=== PATIENT | male | born 1975 | race Caucasian/White ===

== ENCOUNTER 2017-06-07 09:15 | Emergency (ER) | payer MEDICAID, OTHER ==
[~2017-06-07] VITALS: Ht 177.8 cm; Wt 108.9 kg
[2017-06-07 09:20] VITALS: BP_SYST 139
--- NOTE | 2017-06-07 09:30 | NUR ---
ER at bedside examining patient.
--- NOTE | 2017-06-07 09:30 | NUR ---
Pt brought in by BLS,pt c/o woke up whole body shaking,chocking,gasping for the air.pt is awake,alert,oriented x4,apper very anxious,hyperventilation.constantly talking. skin hot,flashes.tachycardia on the monitor.no acute distress.
--- NOTE | 2017-06-07 09:30 | NUR ---
Placed in room 7 . Placed on bus driver/monitor, blood pressure machine and pulse oximeter. To gown for exam. Side rails up.
[2017-06-07] MEDS ORDERED: cefTRIAXone 1 GM IVPB PREMIX 50 ML IV ONE (09:45)
[2017-06-07] MEDS ORDERED: ACETAMINOPHEN 500 MG TABLET PO ONE (09:45)
--- NOTE | 2017-06-07 10:09 | NUR ---
TAKEN TO RADIOLOGY VIA SUSAN
--- NOTE | 2017-06-07 10:13 | NUR ---
RETURNED FROM RADIOLOGY, PLACED BACK INTO BED #7
[2017-06-07 10:20] LABS: BASOPHILS # (AUTO) 0.1 K/uL (0.0-0.2); BASOPHILS % (AUTO) 0.3 % (0.0-2.0); EOSINOPHILS # (AUTO) 0.1 K/uL (0.0-0.4); EOSINOPHILS % (AUTO) 0.6 % (0.0-4.0); HEMOGLOBIN 15.8 g/dL (14.0-18.0); LYMPHOCYTES # (AUTO) 1.4 K/uL (1.0-5.5); LYMPHOCYTES % (AUTO) 7.5 % (20.5-51.5); MEAN CORPUSCULAR HEMOGLOBIN 28 pg (27-31); MEAN CORPUSCULAR HGB CONC 32 % (32-36); MEAN CORPUSCULAR VOLUME 87 fL (79.0-98.0); MONOCYTES # (AUTO) 0.4 K/uL (0.0-1.0); NEUTROPHILS # (AUTO) 16.5 K/uL (1.8-7.7); NEUTROPHILS % (AUTO) 89.6 % (40.0-70.0); PLATELET COUNT (AUTO) 267 K/uL (130-430); RED BLOOD CELL COUNT(AUTO) 5.64 MIL/uL (4.2-6.2); RED CELL DISTRIBUTION WIDTH 12.8 % (9.0-15.0); WHITE BLOOD COUNT (AUTO) 18.5 K/uL (4.8-10.8)
[2017-06-07 10:25] LABS: ANION GAP 5 (5-15); CALCIUM 8.4 mg/dL (8.4-11.0); CHLORIDE 104 mmol/L (98-107); CREATININE 1.26 mg/dL (0.55-1.30); GLUCOSE 97 mg/dL (70-99); POTASSIUM 3.4 mmol/L (3.5-5.1); SODIUM SERUM 142 mmol/L (136-145); UREA NITROGEN, BLOOD 19 mg/dL (8-21)
[2017-06-07 10:30] LABS: PROTHROMBIN TIME 10.5 SECS (9.5-12.5)
[2017-06-07] MEDS ORDERED: NACL 0.9% 1,000 ML IV ONE (10:30)
[2017-06-07 10:31] LABS: GFR AFRICAN AMERICAN 82 mL/min (>90)
[2017-06-07 10:41] LABS: ALANINE AMINOTRANSFERASE 37 U/L (12-78); ALBUMIN 4.2 g/dL (3.4-4.8); ASPARTATE AMINOTRANSFERASE 30 U/L (10-37); FREE T4 (FREE THYROXINE) 0.7 ng/dL (0.6-1.6); TOTAL BILIRUBIN 0.6 mg/dL (0.0-1.0); TOTAL PROTEIN, SERUM 7.7 g/dL (6.4-8.3)
[2017-06-07 10:45] LABS: ALCOHOL, BLOOD < 3 mg/dL (<10)
[2017-06-07 11:25] LABS: BILIRUBIN,URINE NEGATIVE (NEGATIVE); BLOOD, URINE NEGATIVE (NEGATIVE); CLARITY/URINE CLEAR (CLEAR); COLOR,URINE YELLOW (YELLOW); GLUCOSE,URINE NEGATIVE (NEGATIVE); KETONES,URINE NEGATIVE (NEGATIVE); LEUKOCYTE ESTERASE ,URINE NEGATIVE (NEGATIVE); NITRITE, URINE NEGATIVE (NEGATIVE); PROTEIN URINE NEGATIVE (NEGATIVE)
[2017-06-07 11:38] LABS: BENZODIAZEPINE, URINE POSITIVE (NEG <=150); CANNABINOID, URINE POSITIVE (NEG <=50); UR TRICYCLIC ANTIDEPRESSANTS POSITIVE (NEG <=300)
[2017-06-07 11:39] LABS: BARBITURATE, URINE NEGATIVE (NEG <=200); URINE AMPHETAMINE NEGATIVE (NEG <=500)
[2017-06-07 11:40] LABS: COCAINE, URINE NEGATIVE (NEG <=150); METHAMPHETAMINES SCREEN,URINE POSITIVE (NEG <=500); OPIATE, URINE NEGATIVE (NEG <=100); PHENCYCLIDINE SCREEN,URINE NEGATIVE (NEG <=25); URINE METHADONE NEGATIVE (NEG <=200); URINE OXYCODONE SCREEN NEGATIVE (NEG <=100); URINE PROPOXYPHENE SCREEN NEGATIVE (NEG <=300)
--- NOTE | 2017-06-07 12:14 | NUR ---
Patient does not wish to proceed with medical care recommended by Christopher. Patient given information related to possible complications, up to and including , which could occur as a result of leaving hospital at this time. Patient verbalizes understanding of risks involved leaving against medical advice. Patient has signed AMA form.
[2017-06-07 12:15] VITALS: BP_SYST 130
== END 2017-06-07 12:14 | disposition left against medical advice (07) ==
LOC: SED 09:15
DX: R07.89 Other chest pain (principal); F41.9 Anxiety disorder, unspecified; E03.9 Hypothyroidism, unspecified; K21.9 Gastro-esophageal reflux disease without esophagitis; Z90.49 Acquired absence of other specified parts of digestive tract
CPT/HCPCS: 36415; 71010; 74000; 80053; 80307; 81003; 83605; 83880; 84439; 84484; 85025; 85610; 87040; 93005; 96365; 99285; G0482; J0696; J7030

== ENCOUNTER 2019-04-17 12:31 | Emergency (ER) | payer MEDICAID, OTHER ==
[~2019-04-17] VITALS: Ht 177.8 cm; Wt 90.7 kg
[2019-04-17 12:31] VITALS: BP_SYST 93
[2019-04-17] MEDS ORDERED: NACL 0.9% 1,000 ML IV ONE (12:45)
[2019-04-17] MEDS ORDERED: LORazepam 2 MG/ML VIAL (FOR ER USE) IVP ONE ×2 (13:00→15:45)
[2019-04-17 13:06] LABS: BASOPHILS # (AUTO) 0.1 K/uL (0.0-0.2); BASOPHILS % (AUTO) 0.4 % (0.0-2.0); HEMATOCRIT 46.5 % (36-54); LYMPHOCYTES # (AUTO) 0.8 K/uL (1.0-5.5); LYMPHOCYTES % (AUTO) 4.3 % (20.5-51.5); MEAN CORPUSCULAR HEMOGLOBIN 30 pg (27-31); MEAN CORPUSCULAR HGB CONC 34 % (32-36); MEAN CORPUSCULAR VOLUME 87 fL (79.0-98.0); MONOCYTES # (AUTO) 0.7 K/uL (0.0-1.0); MONOCYTES % (AUTO) 3.9 % (1.7-9.3); NEUTROPHILS # (AUTO) 17.5 K/uL (1.8-7.7); NEUTROPHILS % (AUTO) 91.4 % (40.0-70.0); PLATELET COUNT (AUTO) 405 K/uL (130-430); RED BLOOD CELL COUNT(AUTO) 5.37 MIL/uL (4.2-6.2); RED CELL DISTRIBUTION WIDTH 13.4 % (9.0-15.0); WHITE BLOOD COUNT (AUTO) 19.2 K/uL (4.8-10.8)
[2019-04-17 13:19] LABS: BARBITURATE, URINE NEGATIVE (NEG <=200)
[2019-04-17 13:20] LABS: BENZODIAZEPINE, URINE POSITIVE (NEG <=150); CANNABINOID, URINE POSITIVE (NEG <=50); COCAINE, URINE NEGATIVE (NEG <=150); METHAMPHETAMINES SCREEN,URINE POSITIVE (NEG <=500); OPIATE, URINE POSITIVE (NEG <=100); PHENCYCLIDINE SCREEN,URINE NEGATIVE (NEG <=25); UR TRICYCLIC ANTIDEPRESSANTS POSITIVE (NEG <=300); URINE AMPHETAMINE NEGATIVE (NEG <=500); URINE METHADONE NEGATIVE (NEG <=200); URINE OXYCODONE SCREEN NEGATIVE (NEG <=100); URINE PROPOXYPHENE SCREEN NEGATIVE (NEG <=300)
[2019-04-17 13:24] LABS: ALANINE AMINOTRANSFERASE 25 U/L (12-78); ALBUMIN 4.6 g/dL (3.4-4.8); ASPARTATE AMINOTRANSFERASE 19 U/L (10-37); CALCIUM 10.6 mg/dL (8.4-11.0); CHLORIDE 101 mmol/L (98-107); CREATININE 2.15 mg/dL (0.55-1.30); GLUCOSE 199 mg/dL (70-99); POTASSIUM 3.9 mmol/L (3.5-5.1); SODIUM SERUM 140 mmol/L (136-145); TOTAL BILIRUBIN 0.9 mg/dL (0.0-1.0); UREA NITROGEN, BLOOD 23 mg/dL (8-21)
[2019-04-17 13:34] LABS: ANION GAP 19 (5-15)
[2019-04-17 13:36] LABS: GFR AFRICAN AMERICAN 44 mL/min (>90)
[2019-04-17 14:13] LABS: ACETAMINOPHEN < 1 ug/mL (1-30); ALCOHOL, BLOOD < 3 mg/dL (<10)
[2019-04-17] MEDS ORDERED: ONDANSETRON HCL 4 MG/2 ML VIAL IVP ONE (14:45)
[2019-04-17] MEDS ORDERED: ONDANSETRON HCL 4 MG/2 ML VIAL ONE (14:46)
[2019-04-17] MEDS ORDERED: MAG-AL HYDROX/SIMETH 30 ML UDC PO ONE (15:45)
[2019-04-17 16:10] VITALS: BP_SYST 114
== END 2019-04-17 16:10 | disposition home or self-care (01) ==
LOC: SED 12:31
DX: F19.10 Other psychoactive substance abuse, uncomplicated (principal); M79.7 Fibromyalgia; F41.9 Anxiety disorder, unspecified; E03.9 Hypothyroidism, unspecified; K21.9 Gastro-esophageal reflux disease without esophagitis; R11.2 Nausea with vomiting, unspecified; Z90.49 Acquired absence of other specified parts of digestive tract
CPT/HCPCS: 36415; 80053; 80307; 84484; 85025; 93005; 96361; 96374; 96375; 96376; 99284; G0480; G0481; G0482; J2060; J2405; J7030

== ENCOUNTER 2019-08-26 15:43 | Emergency (ER) | payer MEDICAID, OTHER ==
[~2019-08-26] VITALS: Ht 175.3 cm; Wt 83.9 kg
[2019-08-26 15:50] VITALS: BP_SYST 125
[2019-08-26] MEDS ORDERED: HALOPERIDOL LACTATE 5 MG/ML VIAL IVP ONE ×2 (16:15→16:30)
[2019-08-26] MEDS ORDERED: NACL 0.9% 1,000 ML IV ONE (16:15)
[2019-08-26 16:20] LABS: BASOPHILS % (AUTO) 0.3 % (0.0-2.0); HEMATOCRIT 41.5 % (36-54); LYMPHOCYTES # (AUTO) 0.9 K/uL (1.0-5.5); LYMPHOCYTES % (AUTO) 6.1 % (20.5-51.5); MEAN CORPUSCULAR HEMOGLOBIN 29 pg (27-31); MEAN CORPUSCULAR HGB CONC 34 % (32-36); MEAN CORPUSCULAR VOLUME 86 fL (79.0-98.0); MONOCYTES # (AUTO) 0.6 K/uL (0.0-1.0); MONOCYTES % (AUTO) 3.8 % (1.7-9.3); NEUTROPHILS # (AUTO) 13.2 K/uL (1.8-7.7); NEUTROPHILS % (AUTO) 89.8 % (40.0-70.0); PLATELET COUNT (AUTO) 349 K/uL (130-430); RED CELL DISTRIBUTION WIDTH 13.9 % (9.0-15.0); WHITE BLOOD COUNT (AUTO) 14.6 K/uL (4.8-10.8)
[2019-08-26 16:34] LABS: CALCIUM 10.1 mg/dL (8.4-11.0); CREATININE 1.78 mg/dL (0.55-1.30); POTASSIUM 3.3 mmol/L (3.5-5.1)
[2019-08-26 16:40] LABS: ALBUMIN 4.6 g/dL (3.4-4.8); TOTAL BILIRUBIN 0.9 mg/dL (0.0-1.0)
[2019-08-26] MEDS ORDERED: DIPHENHYDRAMINE INJ 50 MG/ML VIAL IVP ONE (17:00)
[2019-08-26 18:26] VITALS: BP_SYST 117
== END 2019-08-26 18:26 | disposition home or self-care (01) ==
LOC: SED 15:43
DX: F12.188 Cannabis abuse with other cannabis-induced disorder (principal); F41.9 Anxiety disorder, unspecified; M79.7 Fibromyalgia; E03.9 Hypothyroidism, unspecified; K21.9 Gastro-esophageal reflux disease without esophagitis
CPT/HCPCS: 36415; 80053; 85025; 93005; 96361; 96374; 96375; 99283; J1200; J1630; J7030

== ENCOUNTER 2021-01-01 11:34 | Emergency (ER) | payer MEDICAID, OTHER, SELFPAY ==
[~2021-01-01] VITALS: Ht 177.8 cm; Wt 95.3 kg
[2021-01-01 11:42] VITALS: BP_SYST 138
[2021-01-01] MEDS ORDERED: NACL 0.9% 1,000 ML IV ONE ×2 (12:00→13:15)
[2021-01-01] MEDS ORDERED: MORPHINE 2 MG/ML INJ. SYRINGE IVP ONE (12:00)
[2021-01-01 12:04] LABS: BASOPHILS # (AUTO) 0.1 K/uL (0.0-0.2); BASOPHILS % (AUTO) 0.7 % (0.0-2.0); EOSINOPHILS % (AUTO) 0.1 % (0.0-4.0); HEMATOCRIT 48.6 % (36-54); HEMOGLOBIN 16.5 g/dL (14.0-18.0); LYMPHOCYTES # (AUTO) 1.5 K/uL (1.0-5.5); LYMPHOCYTES % (AUTO) 10.1 % (20.5-51.5); MEAN CORPUSCULAR HEMOGLOBIN 29 pg (27-31); MEAN CORPUSCULAR HGB CONC 34 % (32-36); MEAN CORPUSCULAR VOLUME 84 fL (79.0-98.0); MONOCYTES # (AUTO) 1.4 K/uL (0.0-1.0); MONOCYTES % (AUTO) 9.4 % (1.7-9.3); NEUTROPHILS # (AUTO) 11.9 K/uL (1.8-7.7); NEUTROPHILS % (AUTO) 79.7 % (40.0-70.0); PLATELET COUNT (AUTO) 354 K/uL (130-430); RED BLOOD CELL COUNT(AUTO) 5.79 MIL/uL (4.2-6.2); RED CELL DISTRIBUTION WIDTH 15.1 % (9.0-15.0); WHITE BLOOD COUNT (AUTO) 14.9 K/uL (4.8-10.8)
[2021-01-01 12:16] LABS: CALCIUM 9.7 mg/dL (8.4-11.0); CREATININE 1.42 mg/dL (0.55-1.30)
[2021-01-01 12:23] LABS: ALBUMIN 4.7 g/dL (3.4-4.8); TOTAL BILIRUBIN 2.4 mg/dL (0.0-1.0)
[2021-01-01 13:10] LABS: BILIRUBIN,URINE NEGATIVE (NEGATIVE); BLOOD, URINE NEGATIVE (NEGATIVE); CLARITY/URINE CLEAR (CLEAR); COLOR,URINE YELLOW (YELLOW); GLUCOSE,URINE NEGATIVE (NEGATIVE); KETONES,URINE NEGATIVE (NEGATIVE); LEUKOCYTE ESTERASE ,URINE NEGATIVE (NEGATIVE); NITRITE, URINE NEGATIVE (NEGATIVE); PH,URINE 5.5 (5.0-8.0); PROTEIN URINE NEGATIVE (NEGATIVE); UROBILINOGEN,URINE 0.2 (0.2-1.0)
[2021-01-01] MEDS ORDERED: POTASSIUM CHLORIDE 20 MEQ/PKT PACKET PO ONE (13:15)
[2021-01-01] MEDS ORDERED: POTASSIUM CHLORIDE 20 MEQ/PKT PACKET ONE (13:16)
[2021-01-01 13:49] VITALS: BP_SYST 130
== END 2021-01-01 13:51 | disposition home or self-care (01) ==
LOC: SED 11:34
DX: K57.92 Diverticulitis of intestine, part unspecified, without perforation or abscess without bleeding (principal); E87.6 Hypokalemia; E86.0 Dehydration; R10.84 Generalized abdominal pain; K21.9 Gastro-esophageal reflux disease without esophagitis; F41.9 Anxiety disorder, unspecified; E03.9 Hypothyroidism, unspecified
CPT/HCPCS: 36415; 74176; 76376; 80053; 81003; 83690; 85025; 96361; 96374; 99284; J2270; J7030

== ENCOUNTER → 2021-05-30 09:20 | Emergency (ER) | payer MEDICAID, OTHER ==
[~2021-05-30] VITALS: Ht 180.3 cm; Wt 117.9 kg
[~2021-05-30 09:20] MED LIST: CIPR500T5 PO; IBUP-1971 PO; KETOROLAC TROMETHAMINE 30 MG VIAL IVP ONE; MAG HYDROX/AL HYDROX/SIMETH 30 ML, DICYCLOMINE HCL 20 MG, LIDOCAINE VISCOUS 2% 15ML (PO... PO ONE; NACL 0.9% 1,000 ML IV ONE; ONDA4TAB5 PO; ONDANSETRON HCL 4 MG/2 ML VIAL IVP ONE
--- NOTE | 2021-05-30 09:20 | NUR ---
Placed in room 1 . Placed on residential monitor, blood pressure machine and pulse oximeter. To gown for exam. Side rails up. Report given to ERIKA Nuñez.
[2021-05-30 09:33] VITALS: BP_SYST 142
--- NOTE | 2021-05-30 09:45 | NUR ---
Pt came to ER for nausea, vomiting, and abdominal pain since Monday. Pt states he has vomitted 20 times today. Pt is resting in [facility] at this time, appears comfortable, MD to evaluate
[2021-05-30 09:46] LABS: BASOPHILS # (AUTO) 0.2 K/uL (0.0-0.2); HEMATOCRIT 51.6 % (36-54); HEMOGLOBIN 16.6 g/dL (14.0-18.0); LYMPHOCYTES # (AUTO) 1.3 K/uL (1.0-5.5); LYMPHOCYTES % (AUTO) 9.1 % (20.5-51.5); MEAN CORPUSCULAR HEMOGLOBIN 27 pg (27-31); MEAN CORPUSCULAR HGB CONC 32 % (32-36); MEAN CORPUSCULAR VOLUME 85 fL (79.0-98.0); MONOCYTES # (AUTO) 1.6 K/uL (0.0-1.0); NEUTROPHILS # (AUTO) 11.5 K/uL (1.8-7.7); NEUTROPHILS % (AUTO) 78.9 % (40.0-70.0); PLATELET COUNT (AUTO) 407 K/uL (130-430); RED BLOOD CELL COUNT(AUTO) 6.05 MIL/uL (4.2-6.2); RED CELL DISTRIBUTION WIDTH 15.3 % (9.0-15.0); WHITE BLOOD COUNT (AUTO) 14.6 K/uL (4.8-10.8)
--- NOTE | 2021-05-30 09:50 | NUR ---
ER at bedside examining patient.
[2021-05-30 09:56] LABS: CALCIUM 10.2 mg/dL (8.4-11.0); CREATININE 1.87 mg/dL (0.55-1.30); POTASSIUM 3.1 mmol/L (3.5-5.1)
[2021-05-30 10:02] LABS: TOTAL BILIRUBIN 1.4 mg/dL (0.0-1.0)
--- NOTE | 2021-05-30 11:16 | NUR ---
Patient given written and verbal discharge instructions and verbalizes understanding. ER MD discussed with patient the results and treatment provided. Patient in stable condition. ID arm band removed. IV catheter removed intact and dressing applied, no active bleeding. Rx of Cipro,Motrin, Zofran given. Patient educated on pain management and to follow up with PMD. Pain Scale 2/10. Opportunity for questions provided and answered. Medication side effect fact sheet provided.
[2021-05-30 11:17] VITALS: BP_SYST 142
== END | disposition home or self-care (01) ==
LOC: SED 09:20
DX: R10.13 Epigastric pain (principal); R19.7 Diarrhea, unspecified; R11.2 Nausea with vomiting, unspecified; F12.90 Cannabis use, unspecified, uncomplicated
CPT/HCPCS: 36415; 71045; 80053; 83690; 85025; 96361; 96374; 96375; 96376; 99284; J1885; J2001; J2405; J7030

== ENCOUNTER 2021-05-30 18:10 | Emergency (ER) | payer MEDICAID, OTHER ==
[~2021-05-30] VITALS: Ht 180.3 cm; Wt 81.6 kg
[~2021-05-30 18:10] MED LIST changes: -KETOROLAC TROMETHAMINE 30 MG VIAL IVP ONE; -MAG HYDROX/AL HYDROX/SIMETH 30 ML, DICYCLOMINE HCL 20 MG, LIDOCAINE VISCOUS 2% 15ML (PO... PO ONE; -NACL 0.9% 1,000 ML IV ONE; -ONDANSETRON HCL 4 MG/2 ML VIAL IVP ONE
--- NOTE | 2021-05-30 18:15 | NUR ---
Placed in room 8 . Placed on [employer] assistant principal, blood pressure machine and pulse oximeter. To gown for exam. Side rails up. Report given to ERIKA Nuñez.
[2021-05-30 18:23] VITALS: BP_SYST 144
--- NOTE | 2021-05-30 18:23 | NUR ---
Pt came to ER with abdominal pain n/v rates pain 07/30, was seen earlier today for same issue and discharged. Pt states he had neighbor oyster picker medication for him but did not attempt to take them because he did not think he would be able to keep them down. Pt wretching, attempting to force vomit unsuccessfully. Awaiting MD darby.
--- NOTE | 2021-05-30 18:25 | NUR ---
FIDEL Arizmendi at bedside examining patient.
[2021-05-30] MEDS ORDERED: NACL 0.9% 1,000 ML IV ONE ×2 (18:45→19:45)
[2021-05-30] MEDS ORDERED: ONDANSETRON HCL 4 MG/2 ML VIAL IVP ONE ×2 (18:45→19:30)
[2021-05-30] MEDS ORDERED: MAG HYDROX/AL HYDROX/SIMETH 30 ML, DICYCLOMINE HCL 20 MG, LIDOCAINE VISCOUS 2% 15ML (PO... PO ONE ×3 (18:45)
[2021-05-30 19:13] LABS: BASOPHILS # (AUTO) 0.1 K/uL (0.0-0.2); BASOPHILS % (AUTO) 0.3 % (0.0-2.0); HEMATOCRIT 49.6 % (36-54); HEMOGLOBIN 15.7 g/dL (14.0-18.0); LYMPHOCYTES # (AUTO) 2.6 K/uL (1.0-5.5); LYMPHOCYTES % (AUTO) 14.3 % (20.5-51.5); MEAN CORPUSCULAR HEMOGLOBIN 27 pg (27-31); MEAN CORPUSCULAR HGB CONC 32 % (32-36); MEAN CORPUSCULAR VOLUME 86 fL (79.0-98.0); MONOCYTES # (AUTO) 1.6 K/uL (0.0-1.0); MONOCYTES % (AUTO) 8.8 % (1.7-9.3); NEUTROPHILS # (AUTO) 14.1 K/uL (1.8-7.7); NEUTROPHILS % (AUTO) 76.6 % (40.0-70.0); PLATELET COUNT (AUTO) 388 K/uL (130-430); RED CELL DISTRIBUTION WIDTH 15.4 % (9.0-15.0); WHITE BLOOD COUNT (AUTO) 18.4 K/uL (4.8-10.8)
[2021-05-30 19:25] LABS: CALCIUM 9.6 mg/dL (8.4-11.0); CREATININE 2.2 mg/dL (0.55-1.30); POTASSIUM 3.2 mmol/L (3.5-5.1)
--- NOTE | 2021-05-30 19:25 | NUR ---
Received report from ERIKA Nuñez. will assume care of patient. Patient AAOx4 and continues to complain of not feeling well. IVF infusing without difficulties. currently in no distress and complaining of no pain.
[2021-05-30 19:29] LABS: ALBUMIN 4.8 g/dL (3.4-4.8); TOTAL BILIRUBIN 1.4 mg/dL (0.0-1.0)
[2021-05-30] MEDS ORDERED: POTASSIUM CHLORIDE 20 MEQ/PKT PACKET PO ONE (19:30)
[2021-05-30] MEDS ORDERED: MORPHINE 4 MG INJ. 4 MG/ML VIAL IVP ONE (19:30)
--- NOTE | 2021-05-30 20:02 | NUR ---
Patient taken to CT scan via wheelchair by radiology staff. VSS.
[2021-05-30 20:28] LABS: BILIRUBIN,URINE 1+ (NEGATIVE); BLOOD, URINE NEGATIVE (NEGATIVE); GLUCOSE,URINE NEGATIVE (NEGATIVE); KETONES,URINE TRACE (NEGATIVE); LEUKOCYTE ESTERASE ,URINE NEGATIVE (NEGATIVE); NITRITE, URINE NEGATIVE (NEGATIVE); PROTEIN URINE 2+ (NEGATIVE)
[2021-05-30 20:38] LABS: CLARITY/URINE HAZY (CLEAR); COLOR,URINE AMBER (YELLOW)
[2021-05-30 20:39] LABS: BACTERIA,URINE FEW /HPF (None Seen); HYALINE CASTS, URINE 0-10 /LPF (None Seen); RBC,URINE NONE SEEN /HPF (0-3); WBC,URINE 0-3 /HPF (0-3)
[2021-05-30 20:40] LABS: MUCUS,URINE 1+ /LPF (None Seen)
--- NOTE | 2021-05-30 21:07 | NUR ---
Patient resting quietly. No acute distress noted. Vital signs within normal range. No episodes of vomiting at this time.
--- NOTE | 2021-05-30 21:55 | NUR ---
Patient given written and verbal discharge instructions and verbalizes understanding. DR. DENNISE PARRA MD discussed with patient the results and treatment provided. Patient in stable condition. ID arm band removed. IV catheter removed intact and dressing applied, no active bleeding. Patient educated on pain management and to follow up with PMD. Pain Scale 0/10. Opportunity for questions provided and answered. Medication side effect fact sheet provided.
[2021-05-30 22:05] VITALS: BP_SYST 133
== END 2021-05-30 18:15 | disposition home or self-care (01) ==
LOC: SED 18:10
DX: K29.50 Unspecified chronic gastritis without bleeding (principal); N17.9 Acute kidney failure, unspecified; E86.0 Dehydration; F41.1 Generalized anxiety disorder; E03.9 Hypothyroidism, unspecified; K21.9 Gastro-esophageal reflux disease without esophagitis; F41.9 Anxiety disorder, unspecified; F12.90 Cannabis use, unspecified, uncomplicated; Z79.899 Other long term (current) drug therapy
CPT/HCPCS: 36415; 74176; 76376; 80053; 81000; 83690; 85025; 96361; 96374; 96375; 96376; 99284; J2001; J2270; J2405; J7030

== ENCOUNTER 2021-11-09 14:13 | Emergency (ER) | payer MEDICAID, OTHER ==
[~2021-11-09] VITALS: Ht 177.8 cm; Wt 90.7 kg
[2021-11-09 14:20] VITALS: BP_SYST 140
[2021-11-09] MEDS ORDERED: KETOROLAC TROMETHAMINE 30 MG VIAL IVP ONE (14:30)
[2021-11-09] MEDS ORDERED: NACL 0.9% 1,000 ML IV ONE (14:30)
[2021-11-09] MEDS ORDERED: ONDANSETRON HCL 4 MG/2 ML VIAL ONE (14:36)
[2021-11-09] MEDS ORDERED: ONDANSETRON HCL 4 MG/2 ML VIAL IVP ONE ×2 (14:45→17:00)
[2021-11-09 14:54] LABS: BASOPHILS # (AUTO) 0.1 K/uL (0.0-0.2); BASOPHILS % (AUTO) 0.9 % (0.0-2.0); EOSINOPHILS % (AUTO) 0.3 % (0.0-4.0); HEMATOCRIT 50.6 % (36-54); LYMPHOCYTES # (AUTO) 3.3 K/uL (1.0-5.5); LYMPHOCYTES % (AUTO) 22.8 % (20.5-51.5); MEAN CORPUSCULAR HEMOGLOBIN 28 pg (27-31); MEAN CORPUSCULAR HGB CONC 34 % (32-36); MEAN CORPUSCULAR VOLUME 83 fL (79.0-98.0); MONOCYTES % (AUTO) 6.6 % (1.7-9.3); NEUTROPHILS # (AUTO) 10.2 K/uL (1.8-7.7); NEUTROPHILS % (AUTO) 69.4 % (40.0-70.0); PLATELET COUNT (AUTO) 373 K/uL (130-430); RED BLOOD CELL COUNT(AUTO) 6.14 MIL/uL (4.2-6.2); RED CELL DISTRIBUTION WIDTH 15.3 % (9.0-15.0); WHITE BLOOD COUNT (AUTO) 14.7 K/uL (4.8-10.8)
[2021-11-09 15:06] LABS: CALCIUM 9.8 mg/dL (8.4-11.0); CREATININE 1.87 mg/dL (0.55-1.30)
[2021-11-09 15:12] LABS: ALBUMIN 4.7 g/dL (3.4-4.8); TOTAL BILIRUBIN 1.1 mg/dL (0.0-1.0)
[2021-11-09] MEDS ORDERED: METOCLOPRAMIDE HCL 10 MG/2 ML VIAL IVP ONE (15:15)
[2021-11-09] MEDS ORDERED: DIPHENHYDRAMINE INJ 50 MG/ML VIAL IVP ONE (15:30)
[2021-11-09] MEDS ORDERED: HALOPERIDOL LACTATE 5 MG/ML VIAL IVP ONE (15:30)
[2021-11-09 15:44] LABS: BILIRUBIN,URINE 2+ (NEGATIVE); BLOOD, URINE NEGATIVE (NEGATIVE); GLUCOSE,URINE NEGATIVE (NEGATIVE); KETONES,URINE 2+ (NEGATIVE); LEUKOCYTE ESTERASE ,URINE NEGATIVE (NEGATIVE); NITRITE, URINE POSITIVE (NEGATIVE); PH,URINE 5.5 (5.0-8.0); PROTEIN URINE 2+ (NEGATIVE)
[2021-11-09 15:52] LABS: COLOR,URINE AMBER (YELLOW)
[2021-11-09 15:53] LABS: CLARITY/URINE HAZY (CLEAR)
[2021-11-09 16:06] LABS: BARBITURATE, URINE NEGATIVE (NEG <=200); BENZODIAZEPINE, URINE NEGATIVE (NEG <=150); CANNABINOID, URINE POSITIVE (NEG <=50); COCAINE, URINE NEGATIVE (NEG <=150); METHAMPHETAMINES SCREEN,URINE NEGATIVE (NEG <=500); PHENCYCLIDINE SCREEN,URINE NEGATIVE (NEG <=25); URINE AMPHETAMINE NEGATIVE (NEG <=500); URINE METHADONE NEGATIVE (NEG <=200)
[2021-11-09 16:07] LABS: OPIATE, URINE POSITIVE (NEG <=100); UR TRICYCLIC ANTIDEPRESSANTS POSITIVE (NEG <=300); URINE OXYCODONE SCREEN NEGATIVE (NEG <=100); URINE PROPOXYPHENE SCREEN NEGATIVE (NEG <=300)
[2021-11-09 16:23] LABS: BACTERIA,URINE FEW /HPF (None Seen); MUCUS,URINE 3+ /LPF (None Seen); RBC,URINE 0-3 /HPF (0-3); WBC,URINE 0-3 /HPF (0-3)
[2021-11-09 17:28] VITALS: BP_SYST 140
== END 2021-11-09 17:28 | disposition home or self-care (01) ==
LOC: SED 14:13
DX: R11.15 Cyclical vomiting syndrome unrelated to migraine (principal); F12.988 Cannabis use, unspecified with other cannabis-induced disorder; K21.9 Gastro-esophageal reflux disease without esophagitis; E03.9 Hypothyroidism, unspecified; F41.9 Anxiety disorder, unspecified; Z20.822 Contact with and (suspected) exposure to COVID-19; Z79.899 Other long term (current) drug therapy
CPT/HCPCS: 36415; 74176; 76376; 80053; 80307; 81000; 85025; 87081; 87086; 87426; 96361; 96374; 96375; 96376; 99284; J1200; J1630; J1885; J2405; J2765; J7030